=== PATIENT | female | born 1950 | race Caucasian/White ===

== ENCOUNTER → 2019-02-08 | Outpatient (CLI) | payer OTHER ==
[~2019-02-08] MED LIST: ALPR-475 PO; ALPR0.257 PO; ALPR1TAB2 PO; CITA20TA6 PO; ESCI20TA10 PO; LORA1TAB PO; LORA2TAB PO; OLAN5TAB3 PO; SERT50TA28 PO; TRAZ50TA66 PO
[2019-02-08 09:40] LABS: BASOPHILS # (AUTO) 0.01 x10^3/uL (0-0.1); BASOPHILS % (AUTO) 0 % (0-1); EOSINOPHILS # (AUTO) 0.22 x10^3/uL (0-0.4); EOSINOPHILS % (AUTO) 3 % (1-7); LYMPHOCYTES # (AUTO) 2.37 x10^3/uL (1-3.4); LYMPHOCYTES % (AUTO) 30 % (22-44); MD NO; MEAN CORPUSCULAR HEMOGLOBIN 27.5 pg (27.0-34.8); MEAN CORPUSCULAR HGB CONC 33.1 g/dL (32.4-35.8); MEAN PLATELET VOLUME 8.8 fL (7.4-10.4); MONOCYTES # (AUTO) 0.45 x10^3/uL (0.2-0.8); MONOCYTES % (AUTO) 6 % (2-9); NEUTROPHILS # (AUTO) 4.74 x10^3/uL (1.8-6.8); NEUTROPHILS % (AUTO) 61 % (42-75); PLATELET COUNT 280 x10^3/uL (130-400); RED BLOOD COUNT 5.07 x10^6/uL (3.82-5.3); RED CELL DISTRIBUTION WIDTH 15.1 % (9.6-15.2)
[2019-02-08 09:51] LABS: ALANINE AMINOTRANSFERASE 28 U/L (12-78); ALBUMIN 4.1 g/dL (3.4-5.0); ANION GAP 7 mmol/L (5-15); CALCIUM 9.7 mg/dL (8.5-10.1); CHLORIDE 108 mmol/L (98-107)
[2019-02-08 10:04] LABS: CHOL/HDL RATIO 5.8; FREE T4 (FREE THYROXINE) 1.06 ng/dL (0.76-1.46); LDL/HDL RATIO 3.8 (0.5-3.0)
[2019-02-08 10:17] LABS: ALKALINE PHOSPHATASE 109 U/L (45-117); BILIRUBIN,TOTAL 0.4 mg/dL (0.2-1.0); CREATININE 0.77 mg/dL (0.55-1.02); T4 (THYROXINE) 10.4 mcg/dL (4.8-13.9)
[2019-02-08 10:18] LABS: FOLATE LEVEL > 20.0 ng/mL (3.1-17.5)
== END | disposition home or self-care (01) ==
LOC: LAB 09:00
PROVIDERS: ATTEND Psychiatry & Neurology Psychiatry
DX: N95.1 Menopausal and female climacteric states (principal); G47.00 Insomnia, unspecified; F34.1 Dysthymic disorder; F33.1 Major depressive disorder, recurrent, moderate; F41.1 Generalized anxiety disorder
CPT/HCPCS: 36415; 80053; 80061; 81291; 82306; 82607; 82746; 84436; 84439; 84443; 84480; 85025

== ENCOUNTER → 2019-07-30 | Outpatient (CLI) | payer OTHER ==
[~2019-07-30] MED LIST changes: -ALPR-475 PO; +ALPR0.5T7 PO
[2019-07-30 08:12] LABS: BASOPHILS # (AUTO) 0.03 x10^3/uL (0-0.1); BASOPHILS % (AUTO) 1 % (0-1); EOSINOPHILS # (AUTO) 0.24 x10^3/uL (0-0.4); EOSINOPHILS % (AUTO) 4 % (1-7); LYMPHOCYTES # (AUTO) 2.11 x10^3/uL (1-3.4); LYMPHOCYTES % (AUTO) 34 % (22-44); MD NO; MEAN CORPUSCULAR HEMOGLOBIN 27.8 pg (27.0-34.8); MEAN CORPUSCULAR HGB CONC 32.9 g/dL (32.4-35.8); MEAN CORPUSCULAR VOLUME 84.6 fL (80-100); MEAN PLATELET VOLUME 8.5 fL (7.4-10.4); MONOCYTES # (AUTO) 0.36 x10^3/uL (0.2-0.8); MONOCYTES % (AUTO) 6 % (2-9); NEUTROPHILS # (AUTO) 3.47 x10^3/uL (1.8-6.8); NEUTROPHILS % (AUTO) 56 % (42-75); PLATELET COUNT 229 x10^3/uL (130-400); RED BLOOD COUNT 5.08 x10^6/uL (3.82-5.3)
[2019-07-30 08:14] LABS: ALBUMIN 4.1 g/dL (3.4-5.0); ANION GAP 5 mmol/L (5-15); CALCIUM 9.2 mg/dL (8.5-10.1); CHLORIDE 110 mmol/L (98-107)
[2019-07-30 08:44] LABS: ALANINE AMINOTRANSFERASE 21 U/L (12-78); ALKALINE PHOSPHATASE 117 U/L (45-117); BILIRUBIN,TOTAL 0.3 mg/dL (0.2-1.0); CREATININE 0.91 mg/dL (0.55-1.02); FREE T4 (FREE THYROXINE) 1.07 ng/dL (0.76-1.46); TOTAL PROTEIN 8.2 g/dL (6.4-8.2)
[2019-07-30 08:51] LABS: FOLATE LEVEL > 20.0 ng/mL (3.1-17.5)
== END | disposition home or self-care (01) ==
LOC: LAB 07:46
PROVIDERS: ATTEND Psychiatry & Neurology Psychiatry
DX: F33.1 Major depressive disorder, recurrent, moderate (principal); F41.1 Generalized anxiety disorder; Z82.49 Family history of ischemic heart disease and other diseases of the circulatory system
CPT/HCPCS: 36415; 80053; 82306; 82607; 82746; 84439; 84443; 85025

== ENCOUNTER → 2019-09-13 | Outpatient (CLI) | payer OTHER | END | disposition home or self-care (01) | LOC: CFH 08:01 | PROVIDERS: ATTEND Family Medicine | DX: N63.11 Unspecified lump in the right breast, upper outer quadrant (principal) | CPT/HCPCS: 76642; 77065; G0279 ==

== ENCOUNTER 2019-09-18 07:35 | Outpatient (CLI) | payer OTHER ==
[2019-09-18] MEDS ORDERED: LIDOCAINE 1%-EPI 1:100K, 20ML ONE (07:45)
[2019-09-18] MEDS ORDERED: SODIUM BICARBONATE 4.0%, 5ML ONE (07:45)
[2019-09-18] MEDS ORDERED: LIDOCAINE 1%, 20ML ONE (07:45)
== END 2019-09-18 23:59 | disposition home or self-care (01) ==
LOC: CFH 07:35
PROVIDERS: ATTEND Family Medicine
DX: N63.11 Unspecified lump in the right breast, upper outer quadrant (principal); C50.411 Malignant neoplasm of upper-outer quadrant of right female breast; Z17.0 Estrogen receptor positive status [ER+]
CPT/HCPCS: 19083; 77065; 88305; 88331; 88334; 88341; 88342; 88360; J3490

== ENCOUNTER → 2019-10-11 | Outpatient (CLI) | payer OTHER ==
[~2019-10-11] MED LIST changes: +CYAN100028 PO; +LEVO15TA6 PO; +MIRT-34 PO; +MULT-750 PO
[2019-10-11 11:47] LABS: BASOPHILS # (AUTO) 0.04 x10^3/uL (0-0.1); BASOPHILS % (AUTO) 1 % (0-1); EOSINOPHILS # (AUTO) 0.18 x10^3/uL (0-0.4); EOSINOPHILS % (AUTO) 3 % (1-7); LYMPHOCYTES # (AUTO) 2.29 x10^3/uL (1-3.4); LYMPHOCYTES % (AUTO) 34 % (22-44); MD NO; MEAN CORPUSCULAR HEMOGLOBIN 27.3 pg (27.0-34.8); MEAN CORPUSCULAR HGB CONC 32.8 g/dL (32.4-35.8); MEAN CORPUSCULAR VOLUME 83.1 fL (80-100); MEAN PLATELET VOLUME 8.8 fL (7.4-10.4); MONOCYTES # (AUTO) 0.47 x10^3/uL (0.2-0.8); MONOCYTES % (AUTO) 7 % (2-9); NEUTROPHILS # (AUTO) 3.75 x10^3/uL (1.8-6.8); NEUTROPHILS % (AUTO) 56 % (42-75); PLATELET COUNT 235 x10^3/uL (130-400); RED BLOOD COUNT 5.02 x10^6/uL (3.82-5.3); RED CELL DISTRIBUTION WIDTH 15.3 % (9.6-15.2)
== END | disposition home or self-care (01) ==
LOC: STAR 10:21
PROVIDERS: ATTEND Surgery
DX: Z01.818 Encounter for other preprocedural examination (principal)
CPT/HCPCS: 36415; 85025; 93005

== ENCOUNTER 2019-10-17 10:17 | Day surgery (SDC) | payer OTHER ==
[~2019-10-17] VITALS: Ht 162.6 cm; Wt 72.7 kg
[2019-10-17 11:20] VITALS: BP 145/90
[2019-10-17] MEDS ORDERED: MIDAZOLAM 1 MG/ML, 2ML ONE (11:21)
[2019-10-17] MEDS ORDERED: FENTANYL PF 250 MCG/5ML ONE (11:22)
[2019-10-17] MEDS ORDERED: BUPIVACAINE/PF 0.5% ONE (11:26)
[2019-10-17] MEDS ORDERED: ISOSULFAN BLUE 10 MG/ML, 5ML IV ONE (11:26)
[2019-10-17] MEDS ORDERED: LACTATED RINGERS 1,000 ML IV SCH (11:26)
[2019-10-17] MEDS ORDERED: EPINEPHRINE 1 MG/ML, 1ML ONE (11:26)
[2019-10-17] MEDS ORDERED: ACETAMINOPHEN 500 MG TABLET PO ONE (12:00)
[2019-10-17] MEDS ORDERED: GABAPENTIN 300 MG CAPSULE PO ONE (12:00)
[2019-10-17] MEDS ORDERED: FAMOTIDINE 20 MG TABLET PO ONE (12:00)
[2019-10-17] MEDS ORDERED: ROCURONIUM 10 MG/ML,10ML ONE (12:51)
[2019-10-17] MEDS ORDERED: ONDANSETRON 2MG/ML, 2ML ONE (12:58)
[2019-10-17] MEDS ORDERED: CEFAZOLIN 1,000 MG ONE ×2 (12:58→13:29)
[2019-10-17] MEDS ORDERED: DEXAMETHASONE 4 MG/ML, 1ML ONE (12:58)
[2019-10-17] MEDS ORDERED: PROPOFOL 10 MG/ML, 20ML ONE (13:03)
[2019-10-17] MEDS ORDERED: GENTAMICIN 80 MG/2 ML ONE (13:29)
[2019-10-17] MEDS ORDERED: BACITRACIN 50,000 UNIT ONE (13:29)
[2019-10-17] MEDS ORDERED: ONDANSETRON 2MG/ML, 2ML IV PRN (13:30)
[2019-10-17] MEDS ORDERED: FENTANYL PF 100 MCG/2ML IV PRN (13:30)
[2019-10-17] MEDS ORDERED: OXYcodone 5 MG/5 ML ORAL.SOL UDC PO PRN (13:30)
[2019-10-17] MEDS ORDERED: HYDROmorphone 2 MG/ML, 1ML IVPush PRN (13:30)
[2019-10-17] MEDS ORDERED: LABETALOL 5MG/ML, 20ML IV PRN (13:30)
[2019-10-17] MEDS ORDERED: PROMETHAZINE 25 MG/ML, 1ML IV PRN (13:30)
[2019-10-17] MEDS ORDERED: MEPERIDINE/PF 25MG/ML,1ML IVPush PRN (13:30)
[2019-10-17] MEDS ORDERED: hydrALAzine 20 MG/ML, 1ML IV PRN (13:30)
[2019-10-17] MEDS ORDERED: EPHEDRINE 50 MG/ML, 1ML ONE (13:37)
== END 2019-10-17 17:00 | disposition home or self-care (01) ==
LOC: OUT 10:17 → EDSTATUS 12:30 → OUT 17:00
PROVIDERS: ATTEND Plastic Surgery
DX: C50.411 Malignant neoplasm of upper-outer quadrant of right female breast (principal); F32.9 Major depressive disorder, single episode, unspecified; F41.9 Anxiety disorder, unspecified; Z79.899 Other long term (current) drug therapy; Z90.49 Acquired absence of other specified parts of digestive tract; Z90.710 Acquired absence of both cervix and uterus; Z98.890 Other specified postprocedural states; Z80.1 Family history of malignant neoplasm of trachea, bronchus and lung; Z80.3 Family history of malignant neoplasm of breast
CPT/HCPCS: 15777; 19303; 19357; 38525; 38792; 88307; 88329; 88333; 88342; A9541; C1729; C1762; C1789; J0171; J0690; J1100; J1580; J2250; J2405; J2704; J3010; J7120

== ENCOUNTER → 2020-02-05 | Outpatient (CLI) | payer OTHER ==
[~2020-02-05] MED LIST changes: +ANAS1TAB49 PO; +CHOL10003 PO; +SERT100T PO
[2020-02-05 10:38] LABS: BASOPHILS # (AUTO) 0.02 x10^3/uL (0-0.1); BASOPHILS % (AUTO) 0 % (0-1); EOSINOPHILS # (AUTO) 0.07 x10^3/uL (0-0.4); EOSINOPHILS % (AUTO) 1 % (1-7); LYMPHOCYTES # (AUTO) 2.38 x10^3/uL (1-3.4); LYMPHOCYTES % (AUTO) 33 % (22-44); MD NO; MEAN CORPUSCULAR HEMOGLOBIN 27.6 pg (27.0-34.8); MEAN CORPUSCULAR HGB CONC 33.2 g/dL (32.4-35.8); MEAN CORPUSCULAR VOLUME 83.3 fL (80-100); MEAN PLATELET VOLUME 8.7 fL (7.4-10.4); MONOCYTES # (AUTO) 0.42 x10^3/uL (0.2-0.8); MONOCYTES % (AUTO) 6 % (2-9); NEUTROPHILS # (AUTO) 4.28 x10^3/uL (1.8-6.8); NEUTROPHILS % (AUTO) 60 % (42-75); PLATELET COUNT 248 x10^3/uL (130-400); RED BLOOD COUNT 5.31 x10^6/uL (3.82-5.3)
== END | disposition home or self-care (01) ==
LOC: STAR 09:06
PROVIDERS: ATTEND Plastic Surgery
DX: Z01.818 Encounter for other preprocedural examination (principal); C50.411 Malignant neoplasm of upper-outer quadrant of right female breast; I21.09 ST elevation (STEMI) myocardial infarction involving other coronary artery of anterior wall; Z85.3 Personal history of malignant neoplasm of breast
CPT/HCPCS: 36415; 85025; 93005

== ENCOUNTER 2020-02-11 05:14 | Day surgery (SDC) | payer OTHER ==
[~2020-02-11] VITALS: Ht 162.6 cm; Wt 69.2 kg
[2020-02-11] MEDS ORDERED: LACTATED RINGERS 1,000 ML IV SCH (05:51)
[2020-02-11 05:59] VITALS: BP 117/76
[2020-02-11] MEDS ORDERED: CHLORHEXIDINE 15 ML UDC MM ONE (06:00)
[2020-02-11] MEDS ORDERED: LIDOCAINE-MPF 1%, 2ML INFIL ONE (06:00)
[2020-02-11] MEDS ORDERED: BACITRACIN 50,000 UNIT ONE (06:47)
[2020-02-11] MEDS ORDERED: CEFAZOLIN 1,000 MG ONE ×2 (06:47→08:31)
[2020-02-11] MEDS ORDERED: BUPIVACAINE/PF-EPI 0.5% 1:200K ONE (06:47)
[2020-02-11] MEDS ORDERED: GENTAMICIN 80 MG/2 ML ONE (06:47)
[2020-02-11] MEDS ORDERED: GABAPENTIN 300 MG CAPSULE ONE ×2 (07:16)
[2020-02-11] MEDS ORDERED: ACETAMINOPHEN 500 MG TABLET ONE ×2 (07:16)
[2020-02-11] MEDS ORDERED: MIDAZOLAM 1 MG/ML, 2ML ONE (07:18)
[2020-02-11] MEDS ORDERED: FENTANYL PF 250 MCG/5ML ONE (07:21)
[2020-02-11] MEDS ORDERED: SODIUM BICARBONATE 1 MEQ/ML, 50ML VIAL ONE (07:30)
[2020-02-11] MEDS ORDERED: LIDOCAINE-MPF 2% ,5ML ONE (07:30)
[2020-02-11] MEDS ORDERED: EPINEPHRINE 1 MG/ML, 1ML ONE (07:30)
[2020-02-11] MEDS ORDERED: OXYcodone 5 MG/5 ML ORAL.SOL UDC PO PRN (08:00)
[2020-02-11] MEDS ORDERED: HYDROmorphone 2 MG/ML, 1ML IVPush PRN (08:00)
[2020-02-11] MEDS ORDERED: MEPERIDINE/PF 25MG/0.5ML IVPush PRN (08:00)
[2020-02-11] MEDS ORDERED: hydrALAzine 20 MG/ML, 1ML IV PRN (08:00)
[2020-02-11] MEDS ORDERED: FENTANYL PF 100 MCG/2ML IV PRN (08:00)
[2020-02-11] MEDS ORDERED: LABETALOL 5MG/ML, 20ML IV PRN (08:00)
[2020-02-11] MEDS ORDERED: PROMETHAZINE 25 MG/ML, 1ML IV PRN (08:00)
[2020-02-11] MEDS ORDERED: ALBUTEROL SULFATE 2.5 MG/3 ML NPPB PRN (08:00)
[2020-02-11] MEDS ORDERED: DIAZEPAM 5 MG/ML, 2ML IVPush PRN (08:00)
[2020-02-11] MEDS ORDERED: NEOSTIGMINE 1 MG/ML, 10ML ONE (08:31)
[2020-02-11] MEDS ORDERED: ONDANSETRON 2MG/ML, 2ML ONE (08:31)
[2020-02-11] MEDS ORDERED: ROCURONIUM 10MG/ML,5ML ONE (08:31)
[2020-02-11] MEDS ORDERED: GLYCOPYRROLATE 0.2MG/1ML, 5ML ONE (08:31)
[2020-02-11] MEDS ORDERED: DEXAMETHASONE 4 MG/ML, 1ML ONE (08:31)
[2020-02-11] MEDS ORDERED: PROPOFOL 10 MG/ML, 20ML ONE (08:31)
[2020-02-11] MEDS ORDERED: SUCCINYLCHOLINE 20 MG/ML, 10ML ONE (08:31)
[2020-02-11] MEDS ORDERED: OXYcodone 5 MG/5 ML ORAL.SOL UDC ONE (09:25)
== END 2020-02-11 11:10 | disposition home or self-care (01) ==
LOC: OUT 05:14
PROVIDERS: ATTEND Plastic Surgery
DX: N65.1 Disproportion of reconstructed breast (principal); F32.9 Major depressive disorder, single episode, unspecified; Z79.891 Long term (current) use of opiate analgesic; Z79.899 Other long term (current) drug therapy; Z85.3 Personal history of malignant neoplasm of breast; Z90.11 Acquired absence of right breast and nipple; Z90.49 Acquired absence of other specified parts of digestive tract; Z90.710 Acquired absence of both cervix and uterus
CPT/HCPCS: 19340; 19342; 19371; C1729; C1789; J0171; J0330; J0690; J1100; J1580; J2250; J2405; J2704; J3010; J7120; J2710

== ENCOUNTER → 2020-04-17 | Outpatient (CLI) | payer OTHER | END | disposition home or self-care (01) | LOC: CFH 09:57 | PROVIDERS: ATTEND Surgery | DX: Z80.3 Family history of malignant neoplasm of breast (principal); Z90.11 Acquired absence of right breast and nipple | CPT/HCPCS: 77065; G0279 ==

== ENCOUNTER 2020-05-28 12:27 | Day surgery (SDC) | payer MEDICARE, OTHER ==
[2020-05-25 11:10] LABS: BASOPHILS # (AUTO) 0.03 x10^3/uL (0-0.1); BASOPHILS % (AUTO) 0 % (0-1); EOSINOPHILS # (AUTO) 0.13 x10^3/uL (0-0.4); EOSINOPHILS % (AUTO) 2 % (1-7); LYMPHOCYTES % (AUTO) 26 % (22-44); MD NO; MEAN CORPUSCULAR HEMOGLOBIN 27.6 pg (27.0-34.8); MEAN CORPUSCULAR HGB CONC 33.1 g/dL (32.4-35.8); MEAN CORPUSCULAR VOLUME 83.6 fL (80-100); MEAN PLATELET VOLUME 9.1 fL (7.4-10.4); MONOCYTES # (AUTO) 0.37 x10^3/uL (0.2-0.8); MONOCYTES % (AUTO) 6 % (2-9); NEUTROPHILS # (AUTO) 4.14 x10^3/uL (1.8-6.8); NEUTROPHILS % (AUTO) 66 % (42-75); PLATELET COUNT 234 x10^3/uL (130-400); RED BLOOD COUNT 5.04 x10^6/uL (3.82-5.3); RED CELL DISTRIBUTION WIDTH 14.7 % (9.6-15.2)
[~2020-05-28] VITALS: Ht 162.6 cm; Wt 67.6 kg
[~2020-05-28 12:27] MED LIST changes: +IBUP-1222 PO
[2020-05-28 12:56] VITALS: BP 124/85
[2020-05-28] MEDS ORDERED: CHLORHEXIDINE 15 ML UDC MM ONE (13:00)
[2020-05-28] MEDS: LACTATED RINGERS 1,000 ML IV SCH ×2 (13:06→13:13)
[2020-05-28] MEDS ORDERED: MIDAZOLAM 1 MG/ML, 2ML ONE (14:04)
[2020-05-28] MEDS ORDERED: FENTANYL PF 250 MCG/5ML ONE (14:04)
[2020-05-28] MEDS ORDERED: BUPIVACAINE/PF-EPI 0.5% 1:200K ONE (14:34)
[2020-05-28] MEDS ORDERED: CEFAZOLIN 1,000 MG ONE ×2 (14:35→15:32)
[2020-05-28] MEDS ORDERED: GENTAMICIN 80 MG/2 ML ONE (14:35)
[2020-05-28] MEDS ORDERED: BACITRACIN 50,000 UNIT ONE (14:35)
[2020-05-28] MEDS ORDERED: MINERAL OIL 10 ML VIAL MC ONE (14:43)
[2020-05-28] MEDS ORDERED: PHENYLEPHRINE 10 MG/ML ONE (14:51)
[2020-05-28] MEDS ORDERED: hydrALAzine 20 MG/ML, 1ML IV PRN (15:00)
[2020-05-28] MEDS ORDERED: FENTANYL PF 100 MCG/2ML IV PRN (15:00)
[2020-05-28] MEDS ORDERED: MEPERIDINE/PF 25MG/0.5ML IVPush PRN (15:00)
[2020-05-28] MEDS ORDERED: PROMETHAZINE 25 MG/ML, 1ML IVPush PRN (15:00)
[2020-05-28] MEDS ORDERED: HYDROmorphone 1 MG/ML, 1ML INJ IVPush PRN (15:00)
[2020-05-28] MEDS ORDERED: morphine SULFATE 10 MG/ML, 1ML IVPush PRN (15:00)
[2020-05-28] MEDS ORDERED: OXYcodone 5 MG/5 ML ORAL.SOL UDC PO PRN (15:00)
[2020-05-28] MEDS ORDERED: ACETAMINOPHEN 325 MG TABLET PO PRN (15:00)
[2020-05-28] MEDS ORDERED: HALOPERIDOL 5 MG/ML IV PRN (15:00)
[2020-05-28] MEDS ORDERED: LABETALOL 5MG/ML, 20ML IV PRN (15:00)
[2020-05-28] MEDS ORDERED: NEOSTIGMINE 1 MG/ML, 10ML ONE (15:32)
[2020-05-28] MEDS ORDERED: DEXAMETHASONE 4 MG/ML, 1ML ONE (15:32)
[2020-05-28] MEDS ORDERED: GLYCOPYRROLATE 0.2MG/1ML, 5ML ONE (15:32)
[2020-05-28] MEDS ORDERED: PROPOFOL 10 MG/ML, 20ML ONE (15:32)
[2020-05-28] MEDS ORDERED: ROCURONIUM 10MG/ML,5ML ONE (15:32)
[2020-05-28] MEDS ORDERED: ONDANSETRON 2MG/ML, 2ML ONE (15:32)
[2020-05-28] MEDS ORDERED: MEPERIDINE/PF 25MG/ML,1ML ONE (16:13)
== END 2020-05-28 17:45 | disposition home or self-care (01) ==
LOC: OUT 12:27
PROVIDERS: ATTEND Plastic Surgery
DX: N65.1 Disproportion of reconstructed breast (principal); Z20.828 Contact with and (suspected) exposure to other viral communicable diseases; L90.5 Scar conditions and fibrosis of skin; Z79.891 Long term (current) use of opiate analgesic; Z79.899 Other long term (current) drug therapy; Z85.3 Personal history of malignant neoplasm of breast; Z90.11 Acquired absence of right breast and nipple; Z90.49 Acquired absence of other specified parts of digestive tract; Z90.710 Acquired absence of both cervix and uterus
CPT/HCPCS: 14000; 19350; 19380; 36415; 85025; 87635; 93005; J0690; J1100; J2175; J2250; J2370; J2405; J2704; J2710; J3010; J7120; J1580

== ENCOUNTER → 2021-04-20 | Outpatient (CLI) | payer OTHER ==
[~2021-04-20] MED LIST changes: +MIRT-14 PO; -MIRT-34 PO; +MULT-482 PO; -MULT-750 PO
== END | disposition home or self-care (01) ==
LOC: CFH 08:53
PROVIDERS: ATTEND Internal Medicine Hematology & Oncology
DX: Z12.31 Encounter for screening mammogram for malignant neoplasm of breast (principal); Z12.39 Encounter for other screening for malignant neoplasm of breast; C50.411 Malignant neoplasm of upper-outer quadrant of right female breast; M85.88 Other specified disorders of bone density and structure, other site
CPT/HCPCS: 76641; 77063; 77067; 77080